=== PATIENT | male | born 1965 | race Caucasian/White ===

== ENCOUNTER 2025-04-05 09:29 | Inpatient (IN) | payer BC ==
[~2025-04-05] VITALS: Ht 180.3 cm; Wt 100.1 kg
--- NOTE | 2025-04-05 09:50 | ELECTROCARDIOGRAPH REPORT ---
[facility] Test Date: 2025-04-05 Test Time: 09:48:18 Pat Name: ERNESTINE EUBANKS Department: [facility]-ER Patient ID: [facility]-[id number] Room: [place] [address] Gender: M Game Room Attendant: : 1965 Requested By: ROGERIO RALPH Order Number: [id number] Reading MD: Dr. Gurinder Toscano Measurements Intervals [place] Rate: 102 P: 71 MD: 174 QRS: 95 QRSD: 159 T: -81 QT: 391 QTc: 510 Interpretive Statements Sinus tachycardia Nonspecific intraventricular conduction delay Anterior infarct, old Abnormal T, consider ischemia, lateral leads Baseline wander in lead(s) V2 Electronically Signed On 04-10-2025 7:50:[address] Gurinder Toscano Please click the below link to view image of tracing.
[2025-04-05 10:06] LABS: MEAN PLATELET VOLUME 7.5 FL (7.4-10.4); RED CELL DISTRIBUTION WIDTH 12.0 % (11.5-14.5)
[2025-04-05 10:32] LABS: CREATININE 5.43 MG/DL (0.60-1.10); PRO BRAIN NATRIURETIC PEPTIDE 8305 PG/ML (0-125); TOTAL CARBON DIOXIDE 26.0 MMOL/L (24-32); eCRCL 15 ML/MIN; eGFR 11 ML/MIN
[2025-04-05] MEDS ORDERED: MULT-1085 PO (11:09)
[2025-04-05] MEDS ORDERED: ASCO10004 PO (11:11)
[2025-04-05] MEDS ORDERED: ASPI-1265 PO (11:11)
--- NOTE | 2025-04-05 11:23 | Physician Documentation ---
History of Present Illness ~ General Chief Complaint: Multiple Medical Complaints Stated Complaint: ABDOMINAL PAIN Time Seen by MD: 10:59 Source: patient (16) History of Present Illness Initial Comments Patient here with multiple medical complaints. He is a gentleman who never gets any regular medical care, reports over the last couple of months having a nagging persistent cough productive of phlegm, a full feeling in his low abdomen especially postprandial, but without any vomiting or diarrhea. He has noted some loosening of his bowel is, last bowel movement today. He denies any fever, shortness of breath, lower extremity edema, but does report a morning chest pain, substernal, going on generally every morning and lasting for a few minutes. He does not currently have any chest pain. Medication Reconciliation Allergies: Coded Allergies: No Known Allergies (Unverified , 04/05/25) Scheduled Ascorbic Acid (Vitamin C), 2 TAB PO DAILY, (Reported) Aspirin (Aspirin), 1 TAB PO DAILY, (Reported) Multivitamin (Multi Vitamin Daily), 1 TAB PO DAILY, (Reported) Past Medical History Past Medical History: No Pertinent History Smoking Status: Never smoker Alcohol Use: Occasionally Drug Use: none Review of Systems All Other Systems at this time: Reviewed and Negative Physical Exam Physical Exam Vital Signs: Temperature: 98.4, Source: Oral, Heart Rate: 114, Respiratory Rate: 20, BP: 141/105, Pulse Oximetry: 98, Weight: 100.100 Oxygen Flow Rate: 0 Physical Exam General: Pt is awake, alert, oriented x4 in no acute distress and well appearing. Head: Normocephalic and atraumatic. Eyes: Conjunctiva normal. ENT: Mucous membranes moist. Neck: Supple. Chest: Clear to auscultation bilaterally, without rales, rhonchi, or wheezes. There is no accessory muscle use or retractions. Cardiac: Regular rate and rhythm without murmurs, gallops or rubs. Palpation of the chest wall is normal. Abd: Soft, nondistended, nontender, with normoactive bowel sounds. No guarding or rebound. Extremities: Within normal limits without cyanosis, clubbing, or edema. Skin: [place], warm and dry with no significant rash appreciated. Neuro: Cranial nerves II-XII grossly intact. The gait is normal. Progress Results/Orders Results/Orders Orders - ROGERIO RALPH MD Chest,Single View (04/05/25 11:29) Monitor (04/05/25 09:45) Saline Lock (04/05/25 09:45) Oxygen (04/05/25 09:45) Hs Troponin I W Calculations (04/05/25 11:45) Hs Troponin I W Calculations (04/05/25 12:45) Page Hospitalist (04/05/25 11:56) Completed Orders - ROGERIO RALPH MD Chest,Single View (04/05/25 11:29) Cbc/Diff (04/05/25 09:45) BMP (04/05/25 09:45) PBNP (04/05/25 09:45) Electrocardiogram (04/05/25 09:45) Hs Troponin I W Calculations (04/05/25 09:45) Vital Signs 04/05/25 04/05/25 04/05/25 04/05/25 09:41 10:45 11:05 11:38 Temp 98.4 Pulse 108 114 103 Resp 16 20 20 B/P (MAP) 145/106 141/105 (117) 136/103 (114) Pulse Ox 99 98 96 O2 Flow Rate 0 0 0 Laboratory Tests Test 04/05/25 09:54 04/05/25 11:31 White Blood Count 7.8 Red Blood Count 3.31 L Hemoglobin 10.5 L Hematocrit 31.0 L Mean Corpuscular Volume 93.7 Mean Corpuscular Hemoglobin 31.6 H Mean Corpuscular Hemoglobin Concent 33.8 Red Cell Distribution Width 12.0 Platelet Count 252 Mean Platelet Volume 7.5 Neutrophils (%) (Auto) 71.6 Lymphocytes (%) (Auto) 16.1 L Monocytes (%) (Auto) 9.6 Eosinophils (%) (Auto) 1.9 Basophils (%) (Auto) 0.8 Neutrophils # (Auto) 5.6 Lymphocytes # (Auto) 1.3 Monocytes # (Auto) 0.7 Eosinophils # (Auto) 0.1 Basophils # (Auto) 0.1 CBC Comment Sodium Level 138 Potassium Level 5.4 H Chloride Level 104 Carbon Dioxide Level 26.0 Anion Gap 8 Blood Urea Nitrogen 96 H Creatinine 5.43 H Estimated GFR/1.73 m2 11 BUN/Creatinine Ratio 17.7 Glucose Level 109 H Calcium Level 8.9 Troponin I High Sensitivity 204 *H Pro-B-Type Natriuretic Peptide 8305 H Albumin 3.8 Chemistry Comments Consults/PCP Consults/PCP : Time Call Requested: 11:53 Consult Reason/Comments: Hospitalist Additional Comment 12:05 Case d/w resident from Dr. Vergara's service, who will evaluate the patient for admission. Medical Decision Making Differential Diagnosis Patient presenting with generalized complaints, minimal chest pain on occasion, no chest pain at this time. EKG per my interpretation showing sinus tachycardia with a rate of 102, anterior Q-waves, and interventricular conduction delay but no STEMI. Patient has not elevated troponin however has obvious renal failure which is more likely to be causing the elevation in the troponin level. The cause of the patient's renal insufficiency is unknown, nor is its duration, as patient has no recent health care or labs for comparison. He is comfortable and stable at this time, we will be admitted to the hospitalist service for further evaluation and management. Departure Time of Disposition: 11:54 Admitted to Inpatient Unit: yes, to hospitalist Impression: Primary Impression: Renal failure Qualified Codes: N19 - Unspecified kidney failure Additional Impressions: Pulmonary edema Elevated troponin I level Condition: Guarded Referrals: NO PRIMARY CARE PROVIDER (PCP) Education Educated: Patient, Family Educated regarding: diagnosis, treatment ROGERIO RALPH MD Apr 05, 2025 11:23
[2025-04-05] MEDS ORDERED: PERFLUTREN PROTEIN-A MICROSPHR (Optison) 0.22 MG/ML 3ML VIAL IV ONE (12:20)
[2025-04-05] MEDS ORDERED: magnesium hydroxide 30ml (MOM) UD suspension PO PRN (12:25)
[2025-04-05] MEDS ORDERED: potassium Cl 20 mEq SR tablet PO PRN ×2 (12:25)
[2025-04-05] MEDS ORDERED: ondansetron 4mg rapidly disintigrating tab PO PRN (12:25)
[2025-04-05] MEDS ORDERED: HYDROmorphone inj. 0.5 MG/0.5 ML DISP.SYRIN IV PRN (12:25)
[2025-04-05] MEDS ORDERED: HYDROcodone/acetaminophen 10/325mg tab PO PRN (12:25)
[2025-04-05] MEDS ORDERED: magnesium sulf-water 2g/50mL 50 ML IV PRN (12:25)
[2025-04-05] MEDS ORDERED: mag hydrox/Alum hydrox/simeth 30ml oral suspension PO PRN (12:25)
[2025-04-05] MEDS ORDERED: potassium Cl 40MEQ/1/2NS 520ml 520 ML IV PRN (12:25)
[2025-04-05] MEDS ORDERED: HYDROcodone/acetaminophen 5mg/325mg tablet PO PRN (12:25)
[2025-04-05] MEDS ORDERED: ondansetron/PF 4mg/2ml inj IV PRN (12:25)
[2025-04-05] MEDS ORDERED: magnesium Cl slow-release 64mg tablet PO PRN (12:25)
[2025-04-05] MEDS ORDERED: HYDROmorphone/PF 0.2 MG/ML SYRINGE IV PRN (12:25)
[2025-04-05] MEDS ORDERED: magnesium sulf-water 4G/100mL 100 ML IV PRN (12:25)
[2025-04-05] MEDS ORDERED: morphine 4 MG/ML inj SYRINge IV PRN ×2 (12:32→12:33)
--- NOTE | 2025-04-05 12:36 | RADIOLOGY REPORT ---
EXAM: DI CHEST,SINGLE VIEW CLINICAL HISTORY: CP TECHNIQUE: Single AP view of the chest WID: COMPARISON: None FINDINGS: Lines and tubes: None Chest: There is cardiomegaly and pulmonary vascular congestion. Calcified plaque projects over the aortic arch. No pleural effusion, pneumothorax, or consolidation. The osseous structures are grossly intact. Multilevel thoracic spondylosis. IMPRESSION: 1. Cardiomegaly and pulmonary vascular congestion.
--- NOTE | 2025-04-05 12:36 | HISTORY AND PHYSICAL-Residence ---
History & Physical Providers to CC Resident Creating Document: DAVID ROBERTSON, RES ~ History of Present Illness Reason for Admit\Complaint: NSTEMI, acute kidney injury, congestive heart failure History of Present Illness A 59 year-old male with no known past medical history presents to the Emergency Department with complaints of recurrent abdominal fullness and intermittent retrosternal chest pain over the past few months. He has not previously sought medical care and does not have a primary care physician. Over the past year, he has experienced progressive generalized weakness, shortness of breath with exertion (notably after walking approximately 200 meters), intermittent abdominal fullness associated with constipation, and decreased urine output. On the day of presentation, he reports worsening abdominal fullness and constipation, along with intermittent retrosternal chest pain accompanied by shortness of breath. He denies palpitations, dizziness, chills, nausea, and vomiting. Additionally, he notes recent weight loss following a high-protein diet. Allergies: Coded Allergies: No Known Allergies (Unverified , 04/05/25) Home Medications Home Medications Active Reported Aspirin 81 Mg Tab.chew 1 Tab PO DAILY 30 Days Vitamin C (Ascorbic Acid) 1,000 Mg Tablet 2 Tab PO DAILY 15 Days DIRECTED Multi Vitamin Daily (Multivitamin) 1 Each Tablet 1 Tab PO DAILY 30 Days Past Medical History Past Medical History No past medical history Past Surgical History Surgical History Comment No surgical history Past Social History Social History Comment Patient does not have primary care physician He has occasional drinker, nonsmoker, not a drug user, patient chews tobacco He lives in his home with his and able to ambulate without any assistance Smoking: Non-Smoker Alcohol Use: Occasionally Drug Use: None ROS All Other Systems: Reviewed and Negative Constitutional: Reports: weakness Eyes: Reports: no symptoms reported ENT: Reports: no symptoms reported Respiratory: Reports: shortness of breath Cardiovascular: Reports: chest pain Gastrointestinal: Reports: abdominal pain Genitourinary: Reports: decreased urine output Male Genitalia: Reports: no symptoms reported Neurological: Reports: no symptoms reported Musculoskeletal: Reports: no symptoms reported Integumentary: Reports: no symptoms reported Allergic/Immunologic: Reports: no symptoms reported Hematologic/Lymphatic: Reports: no symptoms reported Endocrine: Reports: no symptoms reported Psychiatric: Reports: no symptoms reported Exam Vitals: Vital Signs Date Time Temp Pulse Resp B/P (MAP) Pulse Ox O2 Delivery O2 Flow Rate FiO2 04/05/25 11:38 103 20 136/103 (114) 96 0 04/05/25 09:41 98.4 General: GENERAL: Awake, alert, oriented. No acute distress. HEENT : Normocephalic, atraumatic, pupils equal and reactive to light, extraocular movements intact, no scleral icterus or conjunctival pallor, dry oral mucosa NECK: neck is supple, trachea midline, no lymphadenopathy, no thyromegaly, no JV distention RESPIRATORY: Chest expansion equal bilaterally, mild bilateral crepitating are heard on auscultation, no wheezes, or rhonchi. No use of accessory muscles, no tenderness on palpation. CARDIOVASCULAR: S1 and S2 heard, no murmurs, no rubs, or gallops ABDOMEN: Soft, mild tenderness to the palpation, mildly distended, bowel sounds present and normoactive. No organomegaly, no palpable mass, no rebound or guarding NEUROLOGICAL: Alert, oriented, normal memory, speech is normal Cranial nerves II-XII- intact Motor strength 5/5 Sensation-intact in all extremities Reflexes +2 and symmetrical Coordination is intact EXTREMITIES: No Edema, peripheral pulses felt, no deformities Psychiatric:Appropriate mood and affect,No hallucinations Diagnostic Data Last Recorded Lab Results: 04/05/25 0904/05/25 0954 Advance Care Planning Advanced Care plannin - 30 Minutes Additional Plan 59 years old male with no past medical history he is currently evaluated for NSTEMI, acute kidney injury, congestive heart failure NSTEMI Patient presents intermittent chest pain with new EKG showing LBB Patient current blood pressure 132/95, Hr-103 Troponin: [phone] Chest x-ray-shows cardiomegaly and pulmonary congestion Started on carvedilol 3.125 mg, aspirin 81 mg, atorvastatin 80 mg p.o. daily, sublingual nitroglycerin p.r.n. for chest pain Patient is started on heparin drip pharmacy to dose Consulted harness worker Dr. Weiss Follow up with CBC/CMP with 24 hours telemetry Acute kidney Injury possible 2/2 chronic bladder obstruction Patient mentioned decreased urine output past few months BUN-94,Cr-5.51, BUN/creatinine-17.1, FENa-2.3 % CT abdomen/Pelvis shows Severe bilateral hydroureteronephrosis down to the level of the urinary bladder. No focal obstructing lesion identified.Irregular contour and wall thickening of the urinary bladder is suggestive of chronic outlet obstruction. Prostatomegalay Ordered PSA, consulted Nephrology Patient is currently on Jj's catheter Follow up with CBC/CMP Acute congestive heart failure with unknown ejection fraction ProBnp -8305 Chest Xray - Cardiomegalay and pulmonary congestion follow up with echocardiogram Urinary tract infection Urine analysis positive for leukocyte esterase, WBC Started on ceftriaxone 1 g IV daily Hyperlipidemia Patient has no past medical history of hyperlipidemia Started on atorvastatin 80 mg p.o. daily Hyperkalemia Patient potassium level is 5.5 Patient is currently on hypokalemia/hyperkalemia protocol Normocytic normochromic anemia Possible hemolytic anemia and early megaloblastic Follow up with B12, haptoglobin, LDH Follow up with CBC Code Status: Full DVT prophylaxis: Heparin drip Analgesia/Sedation: Morphine Line/tube: Peripheral Nutrition: Renal diet PT: Order Prognosis: Guarded Disposition-patient will be monitored in PCU with 24 hours telemetry David Robertson PGY1-Internal Medicine Resident Date of Service: Apr 05, 2025 Billing Provider: LUKE RANDLE MD, SATISH, RES Apr 05, 2025 12:36
[2025-04-05 12:52] LABS: CREATININE 5.37 MG/DL (0.60-1.10); TOTAL CARBON DIOXIDE 23.4 MMOL/L (24-32); eCRCL 15 ML/MIN; eGFR 11 ML/MIN
[2025-04-05 13:02] LABS: CHOL/HDL RATIO 5.3 (0.00-4.99); LACTATE DEHYDROGENASE 212 U/L (85-227); LDL CHOLESTEROL 122 MG/DL (50-100)
[2025-04-05 13:43] LABS: LEUKOCYTE ESTERASE ,URINE LARGE (Neg); NITRITES, URINE NEGATIVE (Neg); OCCULT BLOOD,URINE SMALL (Neg)
[2025-04-05 13:45] VITALS: BP 132/95; PULSE 103; RESP 16; TEMP 98.2; O2SAT 97
[2025-04-05 13:47] LABS: OSMOLALITY UA 299.0 MOSM/K (50-1400)
[2025-04-05 13:53] LABS: UA COLLECTION TYPE URINAL
[2025-04-05 13:54] LABS: MUCUS STRANDS NONE SEEN /LPF (Neg); SQUAMOUS EPITHELIAL CELL,UR NONE SEEN /LPF (FEW)
[2025-04-05 13:58] LABS: CREATININE,URINE RANDOM 55.0 MG/DL; TOTAL PROTEIN,URINE RANDOM 34.2 MG/DL
[2025-04-05 14:15] LABS: PHOSPHORUS 5.2 MG/DL (2.3-4.5)
[2025-04-05] MEDS ORDERED: normal saline 1000ml 1,000 ML IV SCH (14:25)
[2025-04-05] MEDS: insulin regular, human 10 units/0.1 ml syringe IV ONE (14:50)
[2025-04-05] MEDS ORDERED: albuterol 2.5 MG/3 ML nebule NEB ONE (14:50)
[2025-04-05] MEDS ORDERED: CALCIUM GLUC 1gm/50ml NACL,iso 50 ML IV PRN (14:50)
[2025-04-05] MEDS: dextrose 50%-water 50ml dispensing syringe IV ONE (14:50)
[2025-04-05] MEDS: normal saline 1000ml 1,000 ML IV SCH (15:20)
[2025-04-05 15:23] LABS: CREATININE 5.51 MG/DL (0.60-1.10); TOTAL CARBON DIOXIDE 23.1 MMOL/L (24-32); eCRCL 15 ML/MIN; eGFR 11 ML/MIN
--- NOTE | 2025-04-05 15:33 | ELECTROCARDIOGRAPH REPORT ---
[facility] Test Date: 2025-04-05 Test Time: 15:31:30 Pat Name: ERNESTINE EUBANKS Department: [facility] Room: [place] [address] A Gender: M Sheriff Sergeant: : 1965 Requested By: ALEXIS MEDRANO Order Number: [id number] Reading MD: Dr. JUAN Ramirez Measurements Intervals [place] Rate: 101 P: 65 NH: 161 QRS: 12 QRSD: 160 T: 196 QT: 402 QTc: 522 Interpretive Statements Sinus tachycardia Left bundle branch block Electronically Signed On 04-06-2025 15:39:[address] JUAN Ramirez Please click the below link to view image of tracing.
[2025-04-05] MEDS ORDERED: insulin regular, human 10 units/0.1 ml syringe IV PRN (15:50)
[2025-04-05] MEDS ORDERED: dextrose 50%-water 50ml dispensing syringe IV PRN (15:50)
[2025-04-05 16:00] LABS: UA EOSINOPHILS FEW EOS /HPF
[2025-04-05] MEDS: normal saline 500ml IV soln 500 ML IV ONE (16:06)
--- NOTE | 2025-04-05 16:22 | RADIOLOGY REPORT ---
Exam: CT CT ABDOMEN PELVIS History: PAIN ABDOMEN,CARIDAD Comparison Study: None Technique: Multidetector spiral CT of the abdomen was performed from lung bases to pubic symphysis. Imaging was performed without IV contrast. Axial, coronal and sagittal multiplanar reformats were obtained from the axial data set by the technologist. Radiation Dose : 1. Abdomen/Pelvis: CTDIvol 28 mGy, DLP 1554 mGy*cm. Findings: Evaluation of solid organs is limited due to lack of intravenous contrast use. Lung Bases: Probable mild interstitial pulmonary edema. Trace right pleural effusion. Liver: The liver is normal in size. No focal lesions. Gallbladder and Biliary Tree: Unremarkable Spleen: Unremarkable Pancreas: The pancreas is grossly normal in appearance. Adrenal Glands: Unremarkable Kidneys: Severe bilateral hydroureteronephrosis down to the level of the urinary bladder. No focal obstructing lesion identified. .Bladder: Irregular contour and wall thickening is suggestive of chronic outlet obstruction. Bowel: The stomach is grossly normal in appearance. Small bowel and colon are normal in caliber and distribution. Normal appendix is visualized in the right lower quadrant without findings of appendicitis. Ascites: Absent Lymphadenopathy: No mesenteric, retroperitoneal or periportal lymphadenopathy. Abdominal Wall and Mesentery: Unremarkable. Vasculature: The visualized abdominal aorta is normal in size and caliber. Evaluation of abdominal and pelvic vessels is limited due to lack of intravenous contrast. Pelvic Organs: Prostate is enlarged measuring up to 4.9 cm in transverse dimension. Musculoskeletal: No aggressive focal bony lesions, acute fractures or dislocation. IMPRESSION: 1. Severe bilateral hydroureteronephrosis down to the level of the urinary bladder. No focal obstructing lesion identified. 2. Irregular contour and wall thickening of the urinary bladder is suggestive of chronic outlet obstruction. 3. Prostatomegaly. 4. Mild interstitial pulmonary edema. 5. Trace right pleural effusion Radiation optimization: All CT scans at this facility use at least one of these dose optimization techniques: automated exposure control mA and/or kV adjustment per patient size (includes targeted exams where dose is matched to clinical indication) or iterative reconstruction.
[2025-04-05] MEDS: MESSAGE TO NURSING IV ONE (16:40)
[2025-04-05] MEDS: sodium polystyrene sulfonate 15gm/60ml oral suspension PO ONE (17:04)
[2025-04-05] MEDS: CefTRIAXone/D5W-Rocephin 1gm 50 ML IV ONE (17:04)
[2025-04-05 17:14] LABS: MEAN PLATELET VOLUME 7.6 FL (7.4-10.4); RED CELL DISTRIBUTION WIDTH 12.0 % (11.5-14.5)
[2025-04-05 17:27] LABS: INR 1.0 INR
[2025-04-05] MEDS: heparin 10,000 units/1 ML INJ IV ONE (17:45)
[2025-04-05] MEDS: heparin 25,000 UNIT/250ml bag 250 ML IV PRN (17:47)
[2025-04-05 18:00] VITALS: BP 130/95; PULSE 98; RESP 18; TEMP 99; O2SAT 97
--- NOTE | 2025-04-05 18:56 | RADIOLOGY REPORT ---
RENAL ULTRASOUND REASON FOR EXAM: Acute kidney injury COMPARISON: None TECHNIQUE: Real-time sector scans in multiple planes were obtained over the kidneys, ureters and bladder. FINDINGS: The right kidney measures 13.6 cm. The left kidney measures 12.4 cm. No mass is identified. There is moderate to severe bilateral hydronephrosis. The urinary bladder is significantly distended at 535 cc and trabeculated. The ureteral jets are not identified during this study. IMPRESSION: Moderate to severe bilateral hydronephrosis. Severely distended and trabeculated urinary bladder.
[2025-04-05 20:00] VITALS: RESP 21; O2SAT 96
[2025-04-05] MEDS: docusate sod 100mg capsule PO SCH (20:00)
--- NOTE | 2025-04-05 21:25 | CONSULTATION REPORT ---
Consult Providers to CC ~ History of Present Illness Primary Medical Doctor: David Robertson MD Reason for Admit\Complaint: CARIDAD, obstructive uropathy History of Present Illness I have been asked to do renal consult for this 59 year-old male with no known past medical history that presented to the Emergency Department with complaints of recurrent abdominal fullness and intermittent retrosternal chest pain over the past few months. He has not previously sought medical care and does not have a primary care physician. Over the past year, he has experienced progressive generalized weakness, shortness of breath with exertion (notably after walking approximately 200 meters), intermittent abdominal fullness associated with constipation, and decreased urine output. On the day of presentation, he reports worsening abdominal fullness and constipation, along with intermittent retrosternal chest pain accompanied by shortness of breath. He denies palpitations, dizziness, chills, nausea, and vomiting. Additionally, he notes recent weight loss following a high-protein diet. CT scan showed bilateral severe hydronephrosis with distended bladder and prostatomegaly. Patient is awaiting munoz cath placement. Allergies: Coded Allergies: No Known Allergies (Unverified , 04/05/25) Home Medications Home Medications Active Reported Aspirin 81 Mg Tab.chew 1 Tab PO DAILY 30 Days Vitamin C (Ascorbic Acid) 1,000 Mg Tablet 2 Tab PO DAILY 15 Days DIRECTED Multi Vitamin Daily (Multivitamin) 1 Each Tablet 1 Tab PO DAILY 30 Days Past Medical History Past Medical History nothing significant. he does not have primary care physician. Past Surgical History Surgical History Comment nothing pertinent Past Social History Social History Comment never smoked, occasional etoh no drug abuse ROS ROS abdominal distension. oliguiria. no other complaints. Exam Vitals: Vital Signs Date Time Temp Pulse Resp B/P (MAP) Pulse Ox O2 Delivery O2 Flow Rate FiO2 04/05/25 18:30 98 04/05/25 16:54 Room Air 04/05/25 13:45 98.2 16 132/95 (107) 97 04/05/25 13:34 0 General: Vital Signs: As above General: Normal body habitus, no acute distress. Skin: No rashes, lumps, ulcers, blisters, purpura or petechiae HEENT: Anicteric sclera, ANMOL Neck: Supple and nontender without enlargement of the thyroid, or lymphadenopathy. Chest: Normal size and shape, no tenderness, CTA bilaterally Heart: Regular. No jugular venous distention, S1 and S2 heard , no gallop Abdomen: distended with fluid thrill above umbilicus. full bladder Extremities: No pedal edema Neuro: Nonfocal. Diagnostic Data Last Recorded Lab Results: 04/05/25 1701 04/05/25 1457 Diagnostic Data: Laboratory Tests Test 04/05/25 14:57 04/05/25 17:01 D-Dimer 1.91 MG/L FEU (0-0.50) H D-Dimer Comment Prothrombin Time 10.3 SECONDS (9.0-12.0) INR International Normalized Ratio 1.0 INR APTT (Heparin Protocol) 28 SECONDS (45-60) L Coagulation Comments Problems: (1) CARIDAD (acute kidney injury) Assessment & Plan: secondary to obstructive uropatahy. not sure how long this has been brewing but per history symptoms of abdominal distension dates back to a month. i did discuss with the patient about the possibility of plateauing renal function during recovery after a munoz is placed. He also needs outpatient urology consultation and TURP vs other interventions per urology with cystoscopy. I called the RN around to check at 9:30pm when he is working on it. (2) Anemia Assessment & Plan: hb is 10.5. no need for retacrit at this time. (3) Obstructive uropathy Assessment & Plan: as above. munoz is a must. if there is difficulty, Urologist should be consulted tonight to get it done. It can't wait overnight. ENRIQUE PEARSON MD Apr 05, 2025 21:25
[2025-04-05] MEDS: LidoCAINE 2% Topical Jelly 11mL syringe (UROJET) TOP ONE (21:44)
[2025-04-05 22:00] VITALS: BP 125/86; PULSE 102; RESP 16; TEMP 98.5; O2SAT 98
[2025-04-06] VITALS (8 sets, daily range): BP systolic 116–145; BP diastolic 60–96; PULSE 70–99; RESP 13–19; TEMP 97–98.5; O2SAT 93–99
[2025-04-06] MEDS: MESSAGE TO NURSING IV ONE ×3 (01:30→16:05)
[2025-04-06] MEDS: heparin 10,000 units/1 ML INJ IV PRN (01:39)
--- NOTE | 2025-04-06 05:03 | CONSULTATION REPORT ---
History of Present Illness Providers to CC ~ Reason for Admit\Admit Dx: CARIDAD, obstructive uropathy, difficult munoz catheter placement Refering MD: medicine resident team History of Present Illness 59yo M presented to the ER with various complaints including chest pain, abdominal pain, cough. He does report gradually progressive lower urinary tract symptoms for some time, particularly bothersome over the past 1-2 months, including difficulty urinating, weak stream, sensation of incomplete emptying, frequent small volume voids, and cloudy urine. He denies gross hematuria or painful urination. In ER, workup revealed renal failure with Creatinine 5.4-5.5, elevated troponin, elevated BNP, normal WBC. UA +large LE, small blood 3-10 RBC/hpf, negative nitrite. CT abd pelvis without contrast reviewed independently - shows severe bilateral hydroureteronephrosis down to the level of the bladder with no obstructing stone or mass; no evidence of renal mass, although evaluation is limited by lack of IV contrast; nonspecific bladder wall thickening; bladder distended/full; enlarged prostate. Patient was noted to have PVR of 500cc on bladder scan. Multiple attempts at placing a munoz catheter were unsuccessful, and therefore, urology consultation was requested due to urinary retention and inability of the other providers to place a munoz. At time of my assessment, patient states he has been voiding with his usual symptoms. He denies any acute change in urination or pelvic pain. He denies any prior urologic history. I placed a 16Fr coude catheter into the bladder with immediate return of ~600- 700cc slightly cloudy yellow urine. Patient tolerated well. Allergies: Coded Allergies: No Known Allergies (Unverified , 04/05/25) Home Medications Home Medications Active Reported Aspirin 81 Mg Tab.chew 1 Tab PO DAILY 30 Days Vitamin C (Ascorbic Acid) 1,000 Mg Tablet 2 Tab PO DAILY 15 Days DIRECTED Multi Vitamin Daily (Multivitamin) 1 Each Tablet 1 Tab PO DAILY 30 Days Past Medical History Medical History Comment none Past Surgical History Surgical History Comment none Past Family History Family History Comment noncontributory Past Social History Social History Comment denies smoking Physical Exam Last Vital Signs Recorded: Temperature: 98.2, Source: Oral, Heart Rate: 103, Respiratory Rate: 16, BP: 132/95, Pulse Oximetry: 97, Weight: 100.100 Results Diagram Lab Result Diagram: 04/05/25 1701 04/05/25 1457 Assessment/Plan Problems/Diagnosis: (1) Urinary retention Assessment & Plan: 59yo M admitted with various complaints including chest pain, abd pain, cough, as well as lower urinary tract symptoms for 1-2 months. Workup reveals NSTEMI, renal failure with Creatinine 5.5, severe bilateral hydroureteronephrosis down to the distended bladder, and post void residual >500cc - 16Fr catheter placed with return of 600-700cc slightly cloudy yellow urine - Start flomax - Continue munoz for at least 1-2 weeks, or until Creatinine nadirs - Monitor renal function - Hydronephrosis is expected to resolve with bladder drainage - Pending his clinical course, we may consider voiding trial in hospital in about 1-2 week, or we can arrange outpatient follow up after discharge for voiding trial in office. He will need outpatient urology follow up for further management and workup DREW JOHNS MD Apr 06, 2025 05:03
[2025-04-06] MEDS: CefTRIAXone/D5W-Rocephin 1gm 50 ML IV SCH (07:14)
[2025-04-06] MEDS: K and/or MAG REPLACEMENT MC SCH (08:00)
--- NOTE | 2025-04-06 08:15 | PROGRESS NOTE ---
Progress Note Dictate Providers to CC ~ Central Line/PICC still needed: No Munoz Indications Met/Not Met: F/C Indications Met Antibiotic Ordered?: Yes Subjective Subjective The patient feels relieved after the munoz was placed with difficulty by around 4:30 am today. Since it was just placed, I don't see much improvement in the renal numbers today. Expect it to be better from tomorrow. not sure if he has any underlying CKD as well. will continue with iv fluids. Objective Vitals Vital Signs Date Time Temp Pulse Resp B/P (MAP) Pulse Ox O2 Delivery O2 Flow Rate FiO2 04/06/25 08:20 15 98 Room Air 0.0 04/06/25 06:43 97.8 99 137/96 (110) Lab Results: 04/06/25 0810 04/06/25 0810 Objective Vital Signs: As above General: Normal body habitus, no acute distress. Skin: No rashes, lumps, ulcers, blisters, purpura or petechiae HEENT: Anicteric sclera, ANMOL Neck: Supple and nontender without enlargement of the thyroid, or lymphadenopathy. Chest: Normal size and shape, no tenderness, CTA bilaterally Heart: Regular. No jugular venous distention, S1 and S2 heard , no gallop Abdomen: Soft and non tender no organomegaly,BS+ Extremities: No pedal edema Neuro: Nonfocal. Coagulation Studies Laboratory Tests Test 04/05/25 14:57 04/05/25 17:01 04/06/25 08:10 D-Dimer 1.91 MG/L FEU (0-0.50) H D-Dimer Comment Prothrombin Time 10.3 SECONDS (9.0-12.0) INR International Normalized Ratio 1.0 INR APTT (Heparin Protocol) 38 SECONDS (45-60) L Coagulation Comments Advance Care Planning Advanced Care plannin - 30 Minutes Problem\Assessment\Plan Problems/Diagnosis: (1) CARIDAD (acute kidney injury) Assessment & Plan: secondary to obstructive uropatahy. not sure how long this has been brewing but per history symptoms of abdominal distension dates back to a month. i did discuss with the patient about the possibility of plateauing renal function during recovery after a munoz is placed. He also needs outpatient urology consultation and TURP vs other interventions per urology with cystoscopy. has a difficult munoz placed by . now on Flomax (2) Anemia Assessment & Plan: hb is 10.5. no need for retacrit at this time. (3) Obstructive uropathy Assessment & Plan: as above. munoz is a must. if there is difficulty, Urologist 's help early this am is greatly appreciated. ENRIQUE PEARSON MD Apr 06, 2025 08:15
[2025-04-06] MEDS: ringers solution, lacted 1,000 ML IV SCH (08:26)
[2025-04-06 08:52] LABS: MEAN PLATELET VOLUME 8.1 FL (7.4-10.4); RED CELL DISTRIBUTION WIDTH 12.0 % (11.5-14.5)
[2025-04-06] MEDS ORDERED: heparin 25,000 UNIT/250ml bag 250 ML IV PRN (09:07)
[2025-04-06 09:20] LABS: CREATININE 5.19 MG/DL (0.60-1.10); TOTAL CARBON DIOXIDE 23.0 MMOL/L (24-32); eCRCL 16 ML/MIN; eGFR 11 ML/MIN
--- NOTE | 2025-04-06 16:08 | CARDIOLOGY REPORT ---
APPROVED REPORT EXAM: Comprehensive 2D, Doppler, and color-flow Echocardiogram. Patient Location: 3025 A Heart Rate: 90's bpm Rhythm: SINUS Indications CONGESTIVE HEART FAILIRE CHEST PAIN Shaker Screen Operator: NONE Previous echo: NONE 2D Dimensions RVDd 2.9 cm IVSd 0.6 (0.7-1.1cm) LVDd 6.2 cm PWd 0.7 (0.7-1.1cm) IVSs 1.0 (0.8-1.2cm) LVDs 5.6 (2.5-4.0cm) PWs 1.1 (0.8-1.2cm) LVOT Diameter 2.04 (1.8-2.4cm) FS (%) 10.4 % SV 43.5 ml CO 3.8 L/min M-Mode Dimensions Left Atrium(MM) 4.26 (2.5-4.0cm) Aortic Root 3.66 (2.2-3.7cm) Aortic Cusp Exc 1.78 (1.5-2.0cm) Aortic Valve AoV Peak Jey. 129.2 cm/s AoV VTI 23.1 cm AO Peak GR. 6.7 mmHg AO Mean GR. 4 mmHg LVOT VTI 16.53 cm LVOT Peak Jey. 99.6 cm/s TOSHIA(VTI)/BSA 2.33 cm2/m2 TOSHIA (VTI) 2.33 cm2 AV DI 0.71 % Mitral Valve MV Peak Gr. 7 mmHg MV PHT 60 ms MVA (PHT) 3.67 cm2 MV VMax 135.5 cm/s LEFT VENTRICLE Dilatedl LV size and wall thickness. Overall systolic function is severely reduced. There is severe LV systolic dysfunction present. Overall estimated LVEF is about 10-15%. RIGHT VENTRICLE RV is normal size and function. ATRIA Left atrium is mildly dilated. AORTIC VALVE Trileaflet AV appears normal without stenosis. Trace insufficiency. MITRAL VALVE Mild MV annular calcification without stenosis. Moderate regurgitation. TRICUSPID VALVE TV appears structurally normal with trace regurgitation. PULMONIC VALVE Normal pericardium. No effusion. GREAT VESSELS The aortic root is normal in size. PERICARDIUM Normal pericardium. No effusion. Other Information Study Quality: Adequate Conclusion There is severe LV systolic dysfunction present. Overall estimated LVEF is about 10-15%. Dilatedl LV size and wall thickness. Overall systolic function is severely reduced. RV is normal size and function. Trileaflet AV appears normal without stenosis. Trace insufficiency. Mild MV annular calcification without stenosis. Moderate regurgitation. TV appears structurally normal with trace regurgitation. Normal pericardium. No effusion. The aortic root is normal in size.
--- NOTE | 2025-04-06 17:09 | PROGRESS NOTE- Residence ---
Progress Note - Resident Providers to CC Resident Creating Document: DONNY MORALES RES ~ Antibiotic Timeout Antibiotic Ordered?: Yes Subjective Patient was seen and examined at the bedside. He denies experiencing any chest pain or shortness of breath. The reason for his visit was abdominal fullness; he specifically noted that he has not had any chest pain or palpitations. He reports experiencing intermittent shortness of breath, but only with moderate to severe exertion. The patient has not reported any fever or productive cough. He also mentions minimal urethral discomfort following the Jj catheter placement. No other symptoms were reported. Objective Vital Signs Date Time Temp Pulse Resp B/P (MAP) Pulse Ox O2 Delivery O2 Flow Rate FiO2 04/06/25 16:09 97.4 70 19 138/69 (92) 93 04/06/25 12:22 Room Air 04/06/25 08:20 0.0 Result Diagram: 04/06/25 0810 04/06/25 0810 Awake , alert, and oriented x4 HEENT: Atraumatic, normocephalic, EOMI, anicteric sclera ; pink conjunctiva Neck: Trachea midline. Supple, full range of motion, no JVD Cardiac: Regular rhythm, regular rate with no murmurs all over the precordium. Respiratory: Equal breath sounds bilaterally, no tachypnea, no wheezing ,rub or rales, Chest wall is symmetric and without deformity. Gastrointestinal: Abdomen symmetric, non-distended, soft, non-tender, normal bowel sounds x4 quadrant, normoactive, no hepatosplenomegaly Musculoskeletal: No pedal edema Neurological: Mental status exam: alert and consciousness, orientation, memory, speech - Cranial nerve test: Cranial nerves 2-12 intact - Motor system: Normal Nutrition, normal tone, Power 5/5, no involuntary movements - Sensory system: Intact - Reflex testing: Biceps, triceps and knee reflexes 2+ - Cerebellar: Normal Skin: Warm and dry Coagulation Studies Laboratory Tests Test 04/05/25 14:57 04/05/25 17:01 04/06/25 15:30 D-Dimer 1.91 MG/L FEU (0-0.50) H D-Dimer Comment Prothrombin Time 10.3 SECONDS (9.0-12.0) INR International Normalized Ratio 1.0 INR APTT (Heparin Protocol) 82 SECONDS (45-60) H Coagulation Comments Plan Plan Assessment A 59-year-old male patient with no significant past medical history was admitted for acute kidney injury, congestive heart failure, and elevated troponin levels. 1. Acute Kidney Injury Most likely post-renal due to chronic bladder obstruction. The patient reported decreased urine output over the past few months, associated with increased urinary frequency and a sensation of bladder fullness. There were no signs of acute retention. - BUN: 94 mg/dL - Creatinine: 5.51 mg/dL - BUN/Creatinine Ratio: 17.1 - FENa: 2.3% - PSA: Pending - Renal Ultrasound: Moderate to severe bilateral hydronephrosis; severely distended and trabeculated urinary bladder. - CT Abdomen/Pelvis: Severe bilateral hydroureteronephrosis down to the level of the urinary bladder. No focal obstructing lesion identified. Irregular contour and wall thickening of the urinary bladder suggest chronic outlet obstruction. Prostatomegaly noted. Plan: - Jj catheter was placed by Urology, who recommended outpatient follow-up. - Creatinine levels are expected to decrease. - Increased Flomax to 0.4 mg twice daily. - Administer Lactated Ringer's solution at 150 mL/hour per nephrology recommendations. - Monitor kidney function closely. 2. Type 2 Myocardial Infarction 3. Chronic Systolic Heart Failure with Severely Decreased EF (10-15%) NYHA Class II, Class C. The patient complains of shortness of breath with moderate to severe exertion and denies orthopnea, chest pain, or epigastric pain. No peripheral edema or bibasilar crackles were present. Elevated troponin levels are attributed to a combination of acute kidney injury and congestive heart failure with severely decreased ejection fraction (EF). - EKG shows left bundle branch block . - ProBNP: 8305 - Troponin Levels: 204, 193, 196, 195 - Chest X-ray: Cardiomegaly and pulmonary congestion. - Echocardiogram: Dilated LV size and wall thickness. Overall systolic function is severely reduced. There is severe LV systolic dysfunction present. Overall estimated LVEF is about 10-15%. Plan: - Dr. [place] Weiss was consulted and recommended stopping the heparin drip, pending documentation - The patient is on IV fluids due to acute kidney injury. - Monitor closely for signs of fluid overload. - Started on carvedilol 3.125 mg twice daily. - Started on aspirin 81 mg and atorvastatin 80 mg daily. - Ordered LifeVest. - Plan to initiate Jardiance, spironolactone, and Entresto if kidney function allows. 4. Urinary Tract Infection, Complicated by CARIDAD Urinalysis is positive for leukocyte esterase and white blood cells. The patient denies dysuria. - Urine culture: Pending. - Started on ceftriaxone 1 g IV daily due to severe decreased kidney function, bilateral hydronephrosis and bladder outlet obstruction 5. Moderate Hyperkalemia Most likely related to acute kidney injury. The patients potassium level was 5.5, now reduced to 4.3. - Monitor potassium levels daily. 6. Normocytic Normochromic Anemia Possible mixed anemia of chronic disease and early megaloblastic anemia. - Pending tests: B12, haptoglobin, LDH. - Ordered iron panel. 7. Hyperlipidemia The patient has no past medical history of hyperlipidemia. - LDL: 122 - Started on atorvastatin 80 mg orally daily. Code Status: Full DVT prophylaxis: Heparin Analgesia/Sedation: Morphine Line/tube: Peripheral Nutrition: Renal diet PT: Pending Prognosis: Guarded Disposition: Continue medical treatment. Monitor kidney function closely. Followed by Nephrology, pending cardiology evaluation. Resident MD attestation The above note has been reviewed and supervised by a senior resident PGY2/PGY3 Patient was seen, examined and discussed with the attending physician Date of Service: Apr 06, 2025 Billing Provider: LUKE RANDLE MD,DONNY, RES Apr 06, 2025 17:09
--- NOTE | 2025-04-06 18:16 | CONSULTATION REPORT ---
History of Present Illness Providers to CC CC: SHREYA WEISS MD ~ Reason for Admit\Admit Dx: Cardiology consultation Refering MD: medicine resident team History of Present Illness Patient presented with complaints of abdominal fullness and intermittent exertional chest pain. He also has had dyspnea on exertion and cough for the past week and a half to two weeks. Found to have an acute kidney injury and obstructive uropathy requiring Jj catheter placement. Creatinine over five. His high sensitivity troponins were minimally elevated and mostly flat. Cardiology consultation requested for heart failure with reduced ejection fraction. Allergies: Coded Allergies: No Known Allergies (Unverified , 04/05/25) Home Medications Home Medications Active Reported Aspirin 81 Mg Tab.chew 1 Tab PO DAILY 30 Days Vitamin C (Ascorbic Acid) 1,000 Mg Tablet 2 Tab PO DAILY 15 Days DIRECTED Multi Vitamin Daily (Multivitamin) 1 Each Tablet 1 Tab PO DAILY 30 Days Past Medical History Medical History Comment Denies past medical history Past Surgical History Surgical History Comment Denies past surgical history Past Social History Social History Comment Does not currently smoke. He does not use drugs. Does chew tobacco. Lives at home with his in [place]. Works in [employer]. Physical Exam Last Vital Signs Recorded: RN Vital Signs have been reviewed: Yes, Temperature: 97.4, Source: Oral, Heart Rate: 70, Respiratory Rate: 19, BP: 138/69, Pulse Oximetry: 93, Weight: 100.100 Physical Exam General: Awake, alert, oriented. No apparent distress Respiratory: Lungs are clear to auscultation bilaterally. No respiratory distress. Chest: Normal shape and size. No accessory muscle use. Cardiovascular: Regular rate and rhythm. S1-S2. No murmur, gallop, rub. Gastrointestinal: Abdomen is soft. Nontender to palpation. Bowel sounds present. Extremities: No lower extremity edema, cyanosis or clubbing. Neurologic: Alert and oriented x4. Nonfocal Psychiatric: Normal mood and affect. Skin: Normal color. Warm and dry. Review of Systems All Other Systems at this time: Reviewed and Negative ROS Review of systems negative except documented in HPI. Results EKG EKG Sinus tachycardia with left bundle branch block. Rate of 101. QRS duration 160 milliseconds Echocardiogram Echocardiogram Conclusion There is severe LV systolic dysfunction present. Overall estimated LVEF is about 10-15%. Dilatedl LV size and wall thickness. Overall systolic function is severely reduced. RV is normal size and function. Trileaflet AV appears normal without stenosis. Trace insufficiency. Mild MV annular calcification without stenosis. Moderate regurgitation. TV appears structurally normal with trace regurgitation. Normal pericardium. No effusion. The aortic root is normal in size. Dictated by:ISSA MORALES MD Dictation date and time:04/06/251606 Electronically Signed by: ISSA MORALES MD Date and Time: 04/06/258 Diagram Lab Result Diagram: 04/06/25 0810 04/06/25 0810 Assessment/Plan Additional Plan Patient presented with complaints of abdominal fullness, dyspnea on exertion and chest pain. The following is his problem list: Heart failure with reduced ejection fraction, acute NT proBNP 8305 LVEF 10-15% by echocardiogram with moderate MR --continue carvedilol 3.125 mg b.i.d. --given his CARIDAD we will hold off on addition of SGLT2, MRA, ACEi/ARNI/ARB --start hydralazine and isosorbide dinitrate --risk of sudden cardiac reviewed. Agreeable for LifeVest. Minimally elevated troponins. CO II Represents CO type 2 secondary to acute kidney injury and heart failure with reduced ejection fraction --may continue heparin for 48 hours --recommend aspirin, statin, beta-dieudonne and management as above. Left bundle branch block Obstructive uropathy Acute kidney injury Jj catheter in place. We will need TURP --management per her primary team Case discussed with Dr. Weiss who is in agreement with this plan. Supervising MD Supervising Physician: DUSTIN Carvalho NP Apr 06, 2025 18:16
[2025-04-06] MEDS: heparin, porcine 5000 units/ml vial SQ SCH (21:09)
[2025-04-07] VITALS (19 sets, daily range): BP systolic 104–145; BP diastolic 65–98; PULSE 77–120; RESP 12–21; TEMP 97.3–98.5; O2SAT 97–98
[2025-04-07 07:23] LABS: MEAN PLATELET VOLUME 7.8 FL (7.4-10.4); RED CELL DISTRIBUTION WIDTH 11.9 % (11.5-14.5)
[2025-04-07 07:33] LABS: % IRON SATURATION 26 % (11-46)
[2025-04-07 08:27] LABS: CREATININE 4.24 MG/DL (0.60-1.10); TOTAL CARBON DIOXIDE 23.9 MMOL/L (24-32); eCRCL 19 ML/MIN; eGFR 14 ML/MIN
[2025-04-07 08:27] LABS: HAPTOGLOBIN 245 mg/dL (32-363)
--- NOTE | 2025-04-07 09:38 | PROGRESS NOTE ---
Progress Note Dictate Providers to CC ~ Central Line/PICC still needed: No Munoz Indications Met/Not Met: F/C Indications Met Antibiotic Ordered?: N/A Subjective Subjective 2D Echocardiogram: Conclusion There is severe LV systolic dysfunction present. Overall estimated LVEF is about 10-15%. Dilatedl LV size and wall thickness. Overall systolic function is severely reduced. RV is normal size and function. Trileaflet AV appears normal without stenosis. Trace insufficiency. Mild MV annular calcification without stenosis. Moderate regurgitation. TV appears structurally normal with trace regurgitation. Normal pericardium. No effusion. The aortic root is normal in size. Objective Vitals Vital Signs Date Time Temp Pulse Resp B/P (MAP) Pulse Ox O2 Delivery O2 Flow Rate FiO2 04/07/25 08:42 94 04/07/25 02:00 98.3 17 110/73 (85) 97 Room Air 04/06/25 20:00 0.0 Lab Results: 04/07/25 0642 04/07/25 0642 Objective Vital Signs: As above General: Normal body habitus, no acute distress. Skin: No rashes, lumps, ulcers, blisters, purpura or petechiae HEENT: Anicteric sclera, ANMOL Neck: Supple and nontender without enlargement of the thyroid, or lymphadenopathy. Chest: Normal size and shape, no tenderness, CTA bilaterally Heart: Regular. No jugular venous distention, S1 and S2 heard , no gallop Abdomen: Soft and non tender no organomegaly,BS+ Extremities: No pedal edema Neuro: Nonfocal. Coagulation Studies Laboratory Tests Test 04/05/25 14:57 04/05/25 17:01 04/06/25 15:30 D-Dimer 1.91 MG/L FEU (0-0.50) H D-Dimer Comment Prothrombin Time 10.3 SECONDS (9.0-12.0) INR International Normalized Ratio 1.0 INR APTT (Heparin Protocol) 82 SECONDS (45-60) H Coagulation Comments Advance Care Planning Advanced Care plannin - 30 Minutes Problem\Assessment\Plan Problems/Diagnosis: (1) CARIDAD (acute kidney injury) Assessment & Plan: secondary to obstructive uropatahy. not sure how long this has been brewing but per history symptoms of abdominal distension dates back to a month. i did discuss with the patient about the possibility of plateauing renal function during recovery after a munoz is placed. Appreciate the help from in getting the munoz cath. Creatinine is better at 4.2. We gave him good dose of IV fluids to support the post obstructive diuresis, and flush to avoid ATN. HOwever, today I understand that his Echocardiogram shows EF of 10-15%. If I don't see any further improvement in renal function, he may benefit with Dobutamine at that point. Cardiology is now involved. I have STOPPED the iv fluids to avoid a fluid overload situation. HE IS NOT READY TO BE DISCHARGED YET. (2) Anemia Assessment & Plan: hb is 9.7. no need for retacrit at this time. (3) Obstructive uropathy Assessment & Plan: as above. munoz is a must. if there is difficulty, Urologist 's help early this am is greatly appreciated. ENRIQUE PEARSON MD Apr 07, 2025 09:38
--- NOTE | 2025-04-07 10:12 | PROGRESS NOTE ---
Progress Note Cardiology Providers to CC ~ Subjective Subjective Patient up and ambulatory. No chest pain or shortness for breath. Objective Result Diagram: 04/07/2564104/07/25641 Objective General: Awake, alert, oriented. No apparent distress Respiratory: Lungs are clear to auscultation bilaterally. No respiratory distress. Chest: Normal shape and size. No accessory muscle use. Cardiovascular: Regular rate and rhythm. S1-S2. No murmur, gallop, rub. Gastrointestinal: Abdomen is soft. Nontender to palpation. Bowel sounds present. Extremities: No lower extremity edema, cyanosis or clubbing. Neurologic: Alert and oriented x4. Nonfocal Psychiatric: Normal mood and affect. Skin: Normal color. Warm and dry. Coagulation Studies Laboratory Tests Test 04/05/25 14:57 04/05/25 17:01 04/06/25 15:30 D-Dimer 1.91 MG/L FEU (0-0.50) H D-Dimer Comment Prothrombin Time 10.3 SECONDS (9.0-12.0) INR International Normalized Ratio 1.0 INR APTT (Heparin Protocol) 82 SECONDS (45-60) H Coagulation Comments Problem\Assessment\Plan Additional Plan Patient presented with complaints of abdominal fullness, dyspnea on exertion and chest pain. The following is his problem list: Heart failure with reduced ejection fraction, acute NT proBNP 8305 LVEF 10-15% by echocardiogram with moderate MR --continue carvedilol 3.125 mg b.i.d. --given his CARIDAD we will hold off on addition of SGLT2, MRA, ACEi/ARNI/ARB --start hydralazine and isosorbide dinitrate --risk of sudden cardiac reviewed. He has been fitted for life-vest. Minimally elevated troponins. OR II Represents OR type 2 secondary to acute kidney injury and heart failure with reduced ejection fraction --may continue heparin for 48 hours --recommend aspirin, statin, beta-dieudonne and management as above. Left bundle branch block Obstructive uropathy Acute kidney injury Jj catheter in place. He will need TURP. discussed sx risk/benefits with regards to HF diagnosis. Per Dr. Weiss given his CARIDAD with urinary obstruction the beneifts of the procedure outweigh the risks. likely moderate risk for sx. --management per her primary team Case discussed with Dr. Weiss who is in agreement with this plan. For any further cardiology needs please contact Dr. Ramos directly Supervising Physician: DUSTIN Bello NP Apr 07, 2025 10:12
[2025-04-07] MEDS: DOBUTamine-DoBUTrex 500mg/D5W 250 ML IV SCH (14:08)
--- NOTE | 2025-04-07 16:26 | PROGRESS NOTE- Residence ---
Progress Note - Resident Providers to CC Resident Creating Document: DONNY MORALES RES ~ Antibiotic Timeout Antibiotic Ordered?: Yes Subjective Patient was seen and examined at the bedside. He is completely asymptomatic today, denies chest pain or shortness for breath. He has been managed by Cardiology and Nephrology team. No overnight events reported. Objective Vital Signs Date Time Temp Pulse Resp B/P (MAP) Pulse Ox O2 Delivery O2 Flow Rate FiO2 04/07/25 14:30 84 16 124/72 (89) 04/07/25 11:00 98.5 97 Room Air 04/06/25 20:00 0.0 Result Diagram: 04/07/25 0642 04/07/25 0642 Awake , alert, and oriented x4 HEENT: Atraumatic, normocephalic, EOMI, anicteric sclera ; pink conjunctiva Neck: Trachea midline. Supple, full range of motion, no JVD Cardiac: Regular rhythm, regular rate with no murmurs all over the precordium. Respiratory: Equal breath sounds bilaterally, no tachypnea, no wheezing ,rub or rales, Chest wall is symmetric and without deformity. Gastrointestinal: Abdomen symmetric, non-distended, soft, non-tender, normal bowel sounds x4 quadrant, normoactive, no hepatosplenomegaly Musculoskeletal: No pedal edema Neurological: Mental status exam: alert and consciousness, orientation, memory, speech - Cranial nerve test: Cranial nerves 2-12 intact - Motor system: Normal Nutrition, normal tone, Power 5/5, no involuntary movements - Sensory system: Intact - Reflex testing: Biceps, triceps and knee reflexes 2+ - Cerebellar: Normal Skin: Warm and dry Coagulation Studies Laboratory Tests Test 04/05/25 14:57 04/05/25 17:01 04/06/25 15:30 D-Dimer 1.91 MG/L FEU (0-0.50) H D-Dimer Comment Prothrombin Time 10.3 SECONDS (9.0-12.0) INR International Normalized Ratio 1.0 INR APTT (Heparin Protocol) 82 SECONDS (45-60) H Coagulation Comments Plan Plan Assessment A 59-year-old male patient with no significant past medical history was admitted for acute kidney injury, congestive heart failure, and elevated troponin levels. 1. Acute Kidney Injury Most likely post-renal due to chronic bladder obstruction. The patient reported decreased urine output over the past few months, associated with increased urinary frequency and a sensation of bladder fullness. There were no signs of acute retention. - BUN: 94 mg/dL - Creatinine: 5.51 mg/dL - BUN/Creatinine Ratio: 17.1 - FENa: 2.3% - PSA: Pending - Renal Ultrasound: Moderate to severe bilateral hydronephrosis; severely distended and trabeculated urinary bladder. - CT Abdomen/Pelvis: Severe bilateral hydroureteronephrosis down to the level of the urinary bladder. No focal obstructing lesion identified. Irregular contour and wall thickening of the urinary bladder suggest chronic outlet obstruction. Prostatomegaly noted. Plan 04/06/25 - Jj catheter was placed by Urology, who recommended outpatient follow-up. - Creatinine levels are expected to decrease. - Increased Flomax to 0.4 mg twice daily. - Administer Lactated Ringer's solution at 150 mL/hour per nephrology recommendations. - Monitor kidney function closely. 04/07/25 - Cr decreased to 4.24 - PSA 3.49 - lactated ringer discontinued to avoid fluid overload - After discussion with Nephrology team, patient was started on dobutamine drip 2.5mcg/kg/min to improve diuresis 2. Type 2 Myocardial Infarction 3. Chronic Systolic Heart Failure with Severely Decreased EF (10-15%) NYHA Class II, Class C. The patient complains of shortness of breath with moderate to severe exertion and denies orthopnea, chest pain, or epigastric pain. No peripheral edema or bibasilar crackles were present. Elevated troponin levels are attributed to a combination of acute kidney injury and congestive heart failure with severely decreased ejection fraction (EF). - EKG shows left bundle branch block . - ProBNP: 8305 - Troponin Levels: 204, 193, 196, 195 - Chest X-ray: Cardiomegaly and pulmonary congestion. - Echocardiogram: Dilated LV size and wall thickness. Overall systolic function is severely reduced. There is severe LV systolic dysfunction present. Overall estimated LVEF is about 10-15%. Plan: 04/06/25 - Dr. [place] Weiss was consulted and recommended stopping the heparin drip - The patient is on IV fluids due to acute kidney injury. - Monitor closely for signs of fluid overload. - Started on carvedilol 3.125 mg twice daily. - Started on aspirin 81 mg and atorvastatin 80 mg daily. - Ordered LifeVest. - Plan to initiate Jardiance, spironolactone, and Entresto if kidney function allows. 04/07/25 - Hold carvedilol, since patient is on dobutamine drip - Started on Jardiance after discussion with Nephrology 4. Urinary Tract Infection, Complicated by CARIDAD Urinalysis is positive for leukocyte esterase and white blood cells. The patient denies dysuria. - Urine culture: Pending. - Started on ceftriaxone 1 g IV daily due to severe decreased kidney function, bilateral hydronephrosis and bladder outlet obstruction 5. Moderate Hyperkalemia Most likely related to acute kidney injury. The patients potassium level was 5.5, now reduced to 4.1. - Monitor potassium levels daily. 6. Normocytic Normochromic Anemia Possible mixed anemia of chronic disease and early megaloblastic anemia. - Hb 9.7, MCV 92.8, MCHC 33.9 - B12 903, haptoglobin 245, LDH 212 - Ferritin 1766, Iron 58, TIBC 225 7. Hyperlipidemia The patient has no past medical history of hyperlipidemia. - LDL: 122 - Started on atorvastatin 80 mg orally daily. Code Status: Full DVT prophylaxis: Heparin Analgesia/Sedation: Morphine Line/tube: Peripheral Nutrition: Renal diet PT: Pending Prognosis: Guarded Disposition: Continue medical treatment. Monitor kidney function closely. Followed by Nephrology and Cardiology. Resident MD attestation The above note has been reviewed and supervised by a senior resident PGY2/PGY3 Patient was seen, examined and discussed with the attending physician Date of Service: Apr 07, 2025 Billing Provider: LUKE RANDLE MD, LUCAS, RES Apr 07, 2025 16:26
[2025-04-08] VITALS (13 sets, daily range): BP systolic 103–135; BP diastolic 73–96; PULSE 92–109; RESP 11–20; TEMP 97.3–98; O2SAT 96–98
[2025-04-08 05:42] LABS: MEAN PLATELET VOLUME 7.8 FL (7.4-10.4); RED CELL DISTRIBUTION WIDTH 11.8 % (11.5-14.5)
[2025-04-08 05:57] LABS: CREATININE 3.96 MG/DL (0.60-1.10); TOTAL CARBON DIOXIDE 24.3 MMOL/L (24-32); eCRCL 21 ML/MIN; eGFR 16 ML/MIN
--- NOTE | 2025-04-08 09:06 | PROGRESS NOTE ---
Progress Note Dictate Providers to CC ~ Central Line/PICC still needed: No Munoz Indications Met/Not Met: F/C Indications Met Antibiotic Ordered?: N/A Subjective Subjective The patient remains cheerful. excellent urine output. creatinine continues to get better but slowly. on dobutamine. Objective Vitals Vital Signs Date Time Temp Pulse Resp B/P (MAP) Pulse Ox O2 Delivery O2 Flow Rate FiO2 04/08/25 09:07 102 04/08/25 08:00 16 98 Room Air 04/08/25 05:00 129/87 (101) 04/08/25 02:00 98.0 04/06/25 20:00 0.0 Lab Results: 04/08/259 04/08/25448 Objective Vital Signs: As above General: Normal body habitus, no acute distress. Skin: No rashes, lumps, ulcers, blisters, purpura or petechiae HEENT: Anicteric sclera, ANMOL Neck: Supple and nontender without enlargement of the thyroid, or lymphadenopathy. Chest: Normal size and shape, no tenderness, CTA bilaterally Heart: Regular. No jugular venous distention, S1 and S2 heard , no gallop Abdomen: Soft and non tender no organomegaly,BS+ Extremities: No pedal edema Neuro: Nonfocal. Coagulation Studies Laboratory Tests Test 04/05/25 14:57 04/05/25 17:01 04/06/25 15:30 D-Dimer 1.91 MG/L FEU (0-0.50) H D-Dimer Comment Prothrombin Time 10.3 SECONDS (9.0-12.0) INR International Normalized Ratio 1.0 INR APTT (Heparin Protocol) 82 SECONDS (45-60) H Coagulation Comments Advance Care Planning Advanced Care plannin - 30 Minutes Problem\Assessment\Plan Problems/Diagnosis: (1) CARIDAD (acute kidney injury) Assessment & Plan: secondary to obstructive uropatahy. not sure how long this has been brewing but per history symptoms of abdominal distension dates back to a month. i did discuss with the patient about the possibility of plateauing renal function during recovery after a munoz is placed. Appreciate the help from in getting the munoz cath. Creatinine is better at 3.9. We gave him good dose of IV fluids to support the post obstructive diuresis, and flush to avoid ATN. HOwever, today I understand that his Echocardiogram shows EF of 10-15%. If I don't see any further improvement in renal function, he may benefit with Dobutamine at that point. Cardiology is now involved. I have STOPPED the iv fluids to avoid a fluid overload situation. HE IS NOT READY TO BE DISCHARGED YET. (2) Anemia Assessment & Plan: hb is 9.1. retacrit 10,000 units Sq x once at this time. (3) Obstructive uropathy Assessment & Plan: as above. munoz is a must. if there is difficulty, Urologist 's help is greatly appreciated. ENRIQUE PEARSON MD Apr 08, 2025 09:06
[2025-04-08] MEDS: EMPAGLIFLOZIN 10 MG TABLET PO SCH (09:07)
--- NOTE | 2025-04-08 15:05 | PROGRESS NOTE- Residence ---
Progress Note - Resident Providers to CC Resident Creating Document: DONNY MORALES RES ~ Antibiotic Timeout Antibiotic Ordered?: Yes Subjective Patient was seen and examined at the bedside. He is tolerating all new medications and denies any new symptoms. Patient resting comfortably but ambulates without chest pain or shortness for breath. No other symptoms reported. Objective Vital Signs Date Time Temp Pulse Resp B/P (MAP) Pulse Ox O2 Delivery O2 Flow Rate FiO2 04/08/25 09:07 102 04/08/25 08:00 16 98 Room Air 04/08/25 05:00 129/87 (101) 04/08/25 02:00 98.0 04/06/25 20:00 0.0 Result Diagram: 04/08/2544804/08/25448 Awake , alert, and oriented x4 HEENT: Atraumatic, normocephalic, EOMI, anicteric sclera ; pink conjunctiva Neck: Trachea midline. Supple, full range of motion, no JVD Cardiac: Regular rhythm, regular rate with no murmurs all over the precordium. Respiratory: Equal breath sounds bilaterally, no tachypnea, no wheezing ,rub or rales, Chest wall is symmetric and without deformity. Gastrointestinal: Abdomen symmetric, non-distended, soft, non-tender, normal bowel sounds x4 quadrant, normoactive, no hepatosplenomegaly Musculoskeletal: No pedal edema Neurological: Mental status exam: alert and consciousness, orientation, memory, speech - Cranial nerve test: Cranial nerves 2-12 intact - Motor system: Normal Nutrition, normal tone, Power 5/5, no involuntary movements - Sensory system: Intact - Reflex testing: Biceps, triceps and knee reflexes 2+ - Cerebellar: Normal Skin: Warm and dry Coagulation Studies Laboratory Tests Test 04/05/25 14:57 04/05/25 17:01 04/06/25 15:30 D-Dimer 1.91 MG/L FEU (0-0.50) H D-Dimer Comment Prothrombin Time 10.3 SECONDS (9.0-12.0) INR International Normalized Ratio 1.0 INR APTT (Heparin Protocol) 82 SECONDS (45-60) H Coagulation Comments Plan Plan Assessment A 59-year-old male patient with no significant past medical history was admitted for acute kidney injury, congestive heart failure, and elevated troponin levels. 1. Acute Kidney Injury Most likely post-renal due to chronic bladder obstruction. The patient reported decreased urine output over the past few months, associated with increased urinary frequency and a sensation of bladder fullness. There were no signs of acute retention. - BUN: 94 mg/dL - Creatinine: 5.51 mg/dL - BUN/Creatinine Ratio: 17.1 - FENa: 2.3% - PSA: Pending - Renal Ultrasound: Moderate to severe bilateral hydronephrosis; severely distended and trabeculated urinary bladder. - CT Abdomen/Pelvis: Severe bilateral hydroureteronephrosis down to the level of the urinary bladder. No focal obstructing lesion identified. Irregular contour and wall thickening of the urinary bladder suggest chronic outlet obstruction. Prostatomegaly noted. Plan 04/06/25 - Jj catheter was placed by Urology, who recommended outpatient follow-up. - Creatinine levels are expected to decrease. - Increased Flomax to 0.4 mg twice daily. - Administer Lactated Ringer's solution at 150 mL/hour per nephrology recommendations. - Monitor kidney function closely. 04/07/25 - Cr decreased to 4.24 - PSA 3.49 - lactated ringer discontinued to avoid fluid overload - After discussion with Nephrology team, patient was started on dobutamine drip 2.5mcg/kg/min to improve diuresis 04/08/25 - Cr 3.96 - Continue dobutamine drip for more 24 hours - Possible discharge soon with outpatient follow-up 2. T/ype 2 Myocardial Infarction due to demand ischemia in the setting of kidney injury and severely decreased EF 3. Chronic Systolic Heart Failure with Severely Decreased EF (10-15%) NYHA Class II, Class C. The patient complains of shortness of breath with moderate to severe exertion and denies orthopnea, chest pain, or epigastric pain. No peripheral edema or bibasilar crackles were present. Elevated troponin levels are attributed to a combination of acute kidney injury and congestive heart failure with severely decreased ejection fraction (EF). - EKG shows left bundle branch block . - ProBNP: 8305 - Troponin Levels: 204, 193, 196, 195 - Chest X-ray: Cardiomegaly and pulmonary congestion. - Echocardiogram: Dilated LV size and wall thickness. Overall systolic function is severely reduced. There is severe LV systolic dysfunction present. Overall estimated LVEF is about 10-15%. Plan: 04/06/25 - Dr. [place] Weiss was consulted and recommended stopping the heparin drip - The patient is on IV fluids due to acute kidney injury. - Monitor closely for signs of fluid overload. - Started on carvedilol 3.125 mg twice daily. - Started on aspirin 81 mg and atorvastatin 80 mg daily. - Ordered LifeVest. - Plan to initiate Jardiance, spironolactone, and Entresto if kidney function allows. 04/07/25 - Hold carvedilol, since patient is on dobutamine drip - Started on Jardiance after discussion with Nephrology 04/08/25 Continue Jardiance, hold carvedilol Continue hydralazine/isosorbide dinitrate 4. Urinary Tract Infection, Complicated by CARIDAD Urinalysis is positive for leukocyte esterase and white blood cells. The patient denies dysuria. - Urine culture: Mixed josiane - Continue ceftriaxone 1 g IV day 3 due to severe decreased kidney function, bilateral hydronephrosis and bladder outlet obstruction 5. Moderate Hyperkalemia Most likely related to acute kidney injury. The patients potassium level was 5.5, now back to normal - Monitor potassium levels daily. 6. Normocytic Normochromic Anemia Possible mixed anemia of chronic disease and early megaloblastic anemia. - Hb 9.7, MCV 92.8, MCHC 33.9 - B12 903, haptoglobin 245, LDH 212 - Ferritin 1766, Iron 58, TIBC 225 7. Hyperlipidemia The patient has no past medical history of hyperlipidemia. - LDL: 122 - Started on atorvastatin 80 mg orally daily. Code Status: Full DVT prophylaxis: Heparin Analgesia/Sedation: Morphine Line/tube: Peripheral Nutrition: Renal diet PT: Pending Prognosis: Guarded Disposition: Continue medical treatment. Monitor kidney function closely. Followed by Nephrology and Cardiology. Possible discharge soon with outpatient follow-up. Resident MD attestation The above note has been reviewed and supervised by a senior resident PGY2/PGY3 Patient was seen, examined and discussed with the attending physician Date of Service: Apr 08, 2025 Billing Provider: LUKE RANDLE MD, LUCAS, RES Apr 08, 2025 15:05
[2025-04-09] VITALS (7 sets, daily range): BP systolic 120–136; BP diastolic 77–87; PULSE 94–100; RESP 13–20; TEMP 97.4–98.3; O2SAT 96–97
[2025-04-09 05:53] LABS: MEAN PLATELET VOLUME 7.7 FL (7.4-10.4); RED CELL DISTRIBUTION WIDTH 12.1 % (11.5-14.5)
[2025-04-09 06:01] LABS: CREATININE 3.54 MG/DL (0.60-1.10); TOTAL CARBON DIOXIDE 24.3 MMOL/L (24-32); eCRCL 23 ML/MIN; eGFR 18 ML/MIN
--- NOTE | 2025-04-09 12:45 | PROGRESS NOTE ---
Progress Note Dictate Providers to CC ~ Central Line/PICC still needed: No Munoz Indications Met/Not Met: F/C Indications Met Antibiotic Ordered?: N/A Subjective Subjective outpatient follow up with me has been arranged. he meanwhile needs weekly renal panel for 2 months. He will go home with munoz cath for now and needs a mandatory follow up with withina month. He needs a follow up with as well regarding his cardiomyopathy prior to his ability to have a TURP done with a [facility]. fluid restriction to 1.5 liters per day. 2 g sodium per day. Objective Vitals Vital Signs Date Time Temp Pulse Resp B/P (MAP) Pulse Ox O2 Delivery O2 Flow Rate FiO2 04/09/25 11:00 97.7 98 20 130/86 (101) 04/09/25 02:00 97 Room Air 04/06/25 20:00 0.0 Lab Results: 04/09/25 0520 04/09/25 0520 Objective Vital Signs: As above General: Normal body habitus, no acute distress. Skin: No rashes, lumps, ulcers, blisters, purpura or petechiae HEENT: Anicteric sclera, ANMOL Neck: Supple and nontender without enlargement of the thyroid, or lymphadenopathy. Chest: Normal size and shape, no tenderness, CTA bilaterally Heart: Regular. No jugular venous distention, S1 and S2 heard , no gallop Abdomen: Soft and non tender no organomegaly,BS+ Extremities: No pedal edema Neuro: Nonfocal. Coagulation Studies Laboratory Tests Test 04/05/25 14:57 04/05/25 17:01 04/06/25 15:30 D-Dimer 1.91 MG/L FEU (0-0.50) H D-Dimer Comment Prothrombin Time 10.3 SECONDS (9.0-12.0) INR International Normalized Ratio 1.0 INR APTT (Heparin Protocol) 82 SECONDS (45-60) H Coagulation Comments Advance Care Planning Advanced Care plannin - 30 Minutes Problem\Assessment\Plan Problems/Diagnosis: (1) CARIDAD (acute kidney injury) Assessment & Plan: secondary to obstructive uropatahy. getting better slowly. ther eis a posssibility of coexistent cardiomyopathy related cardiorenal syndrome. needs weekly renal panel. (2) Anemia Assessment & Plan: hb is 9.1. retacrit 10,000 units Sq x once at this time. (3) Obstructive uropathy Assessment & Plan: as above. munoz is a must. if there is difficulty, Urologist 's help is greatly appreciated. ENRIQUE PEARSON MD Apr 09, 2025 12:45
[2025-04-09] MEDS ORDERED: ISOS10TA2 PO (13:05)
[2025-04-09] MEDS ORDERED: HYDR25TA90 PO (13:05)
[2025-04-09] MEDS ORDERED: EMPA10TA PO (13:05)
[2025-04-09] MEDS ORDERED: ASPI-1265 PO (13:05)
[2025-04-09] MEDS ORDERED: ATOR-429 PO (13:05)
[2025-04-09] MEDS ORDERED: tamsulosin capsule PO (13:05)
[2025-04-09] MEDS ORDERED: CARV3.1289 PO (13:06)
[2025-04-09] MEDS ORDERED: TAMS-55 PO (17:15)
--- NOTE | 2025-04-09 19:40 | DISCHARGE SUMMARY-Residence ---
Discharge Summary Providers to CC Resident Creating Document: ROEL MORALES RES ~ Discharge Summary Admission Diagnosis: CARIDAD, type 2 MN Hospital Course DATE OF ADMISSION: 04/05/25 DATE OF DISCHARGE: 04/09/25 Renal ultrasound Moderate to severe bilateral hydronephrosis. Severely distended and trabeculated urinary bladder. Chest x-ray Cardiomegaly and pulmonary vascular congestion Abdomen CT 1. Severe bilateral hydroureteronephrosis down to the level of the urinary bladder. No focal obstructing lesion identified. 2. Irregular contour and wall thickening of the urinary bladder is suggestive of chronic outlet obstruction. 3. Prostatomegaly. 4. Mild interstitial pulmonary edema. 5. Trace right pleural effusion Echocardiogram There is severe LV systolic dysfunction present. Overall estimated LVEF is about 10-15%. Dilatedl LV size and wall thickness. Overall systolic function is severely reduced. RV is normal size and function. Trileaflet AV appears normal without stenosis. Trace insufficiency. Mild MV annular calcification without stenosis. Moderate regurgitation. TV appears structurally normal with trace regurgitation. Normal pericardium. No effusion. The aortic root is normal in size. Discharge Diagnosis\\Comment: 1. Acute Kidney Injury Most likely post-renal due to chronic bladder obstruction, causing renal tubular stasis 2. T/ype 2 Myocardial Infarction due to demand ischemia in the setting of kidney injury and severely decreased EF 3. Newly diagnosed Systolic Heart Failure with Severely Decreased EF (10-15%) NYHA Class II, Class C. 4. Urinary Tract Infection, Complicated by CARIDAD due to renal tubular stasis 5. Moderate Hyperkalemia 6. Normocytic Normochromic Anemia 7. Hyperlipidemia Operations\\Procedures: None Consultants: Cardiology, Urology, nephrology Complications: None Condition on DC: Stable New Medications: Carvedilol (Carvedilol) 3.125 Mg Tablet 1 TAB PO Q12H for 30 Days, #60 TAB 0 Refills Tamsulosin Hcl* (Flomax*) 0.4 Mg Cap.sr.24h 1 CAP PO DAILY for 30 Days, #30 CAP Atorvastatin Calcium* (Lipitor*) 80 Mg Tablet 1 TAB PO DAILY for 30 Days, #30 TAB Empagliflozin (Jardiance) 10 Mg Tablet 10 MG PO DAILY for 30 Days, #30 TAB Hydralazine Hcl* (Apresoline*) 25 Mg Tablet 25 MG PO BID for 30 Days, #60 TAB Isosorbide Dinitrate (Isosorbide Dinitrate) 10 Mg Tablet 10 MG PO TID for 30 Days, #90 TAB [tamsulosin capsule] () 0.4 MG CAP 0.4 MG PO HS for 30 Days, #30 Continued Medications: Aspirin (Aspirin) 81 Mg Tab.chew 1 TAB PO DAILY for 30 Days, #30 TAB (This prescription has been renewed) Discharge Summary: History of present illness The patient was admitted with the following HPI: "A 59 year-old male with no known past medical history presents to the Emergency Department with complaints of recurrent abdominal fullness and intermittent retrosternal chest pain over the past few months. He has not previously sought medical care and does not have a primary care physician. Over the past year, he has experienced progressive generalized weakness, shortness of breath with exertion (notably after walking approximately 200 meters), intermittent abdominal fullness associated with constipation, and decreased urine output. On the day of presentation, he reports worsening abdominal fullness and constipation, along with intermittent retrosternal chest pain accompanied by shortness of breath. He denies palpitations, dizziness, chills, nausea, and vomiting. Additionally, he notes recent weight loss following a high-protein diet." Hospital course A 59-year-old man with no known past medical history presented on April 05, 2025, complaining of one year of postprandial abdominal fullness that had worsened over the prior one to two months. He described intermittent chest pain and shortness of breath only with moderate to severe exertion, such as walking more than 200 meters, but denied symptoms at rest. He also reported chronic lower urinary tract symptoms: weak stream, sensation of incomplete bladder emptying, frequent small-volume voids, and cloudy urine. There was no fever, flank pain, hematuria, nausea, or vomiting. On arrival, he was hypertensive at 145/106 mmHg with a heart rate of 103 bpm, afebrile, and saturating 99% on room air. Physical exam revealed a soft, mildly distended abdomen with suprapubic tenderness but no guarding or rebound. Cardiac and lung exams were unremarkable, with no murmurs, wheezes, or signs of volume overload. Initial laboratory evaluation revealed: creatinine 5.43 mg/dL, BUN 96 mg/dL (BUN/creatinine ratio 17.7), fractional excretion of sodium 0.4%. Troponin was elevated at 204 ng/L and remained stable across serial measurements (193 - 196 - 195). BNP was markedly elevated at 8305 pg/mL. Urinalysis showed positive leukocyte esterase and cloudy urine. Post-void residual volume by bladder scan was 500 mL. Chest X-ray demonstrated cardiomegaly and pulmonary vascular congestion. CT abdomen/pelvis revealed severe bilateral hydroureteronephrosis, marked bladder wall thickening, and no stones or masses. Urology was consulted urgently. A 16 [place] Jj catheter was placed, draining 700 mL of cloudy yellow urine immediately. Lactated Ringers was initiated at 150 mL/hour, and ceftriaxone 1 gram IV daily was started for presumed urinary tract infection. Cardiology evaluated the patient; heparin drip was discontinued given stable troponins and lack of ischemic ECG changes. Aspirin 81 mg, atorvastatin 80 mg, and carvedilol 3.25 mg twice daily were begun. Echocardiogram and renal ultrasound were ordered. On hospital day 1, creatinine improved to 5.19 mg/dL. Echocardiogram showed severe global hypokinesis with left ventricular ejection fraction of 1015%, mild mitral regurgitation, and no significant valvular disease. The patient remained asymptomatic at rest, with no orthopnea, edema, or respiratory distress. He was treated for CARIDAD due to postrenal etiology with chronic outlet obstruction, type 2 MN and UTI. He was also diagnosed with newly diagnosed heart failure with severely reduced ejection fraction (HFrEF, EF 1015%), compensated, likely multifactorial (ischemic vs. Kidney failure-induced). Management continued with IV fluids, ceftriaxone, and Jj catheter. We also ordered a LifeVest for arrhythmia prophylaxis. Plans were made to initiate guideline-directed medical therapy (Jardiance, spironolactone, Entresto) once renal function further improved. On hospital day 2, creatinine continued to downtrend to 4.24 mg/dL. IV fluids were discontinued to avoid fluid overload in the setting of severe HFrEF. D obutamine was initiated at 2.5 mcg/kg/min to support renal perfusion and promote diuresis. Carvedilol was held while on inotropic support. Urology recommended maintaining the Jj catheter for at least two weeks, with outpatient transurethral resection of the prostate planned for definitive BPH management. Coronary angiography splint outpatient to evaluate the etiology of heart failure and possible ischemic contribution. Throughout the hospitalization, the patient remained hemodynamically stable, with improving renal function, stable cardiac biomarkers, and no signs of decompensated heart failure. He is stable to be discharged with Cardiology, Urology and Nephrology follow-up Discharge physical exam Awake , alert, and oriented x4 HEENT: Atraumatic, normocephalic, EOMI, anicteric sclera ; pink conjunctiva Neck: Trachea midline. Supple, full range of motion, no JVD Cardiac: Regular rhythm, regular rate with no murmurs all over the precordium. Respiratory: Equal breath sounds bilaterally, no tachypnea, no wheezing ,rub or rales, Chest wall is symmetric and without deformity. Gastrointestinal: Abdomen symmetric, non-distended, soft, non-tender, normal bowel sounds x4 quadrant, normoactive, no hepatosplenomegaly Musculoskeletal: No pedal edema Neurological: Mental status exam: alert and consciousness, orientation, memory, speech - Cranial nerve test: Cranial nerves 2-12 intact - Motor system: Normal Nutrition, normal tone, Power 5/5, no involuntary movements - Sensory system: Intact - Reflex testing: Biceps, triceps and knee reflexes 2+ - Cerebellar: Normal Skin: Warm and dry Discharge medications New Medications: Carvedilol 3.125 Mg Tablet Tamsulosin Hcl* (Flomax*) 0.4 Mg Cap.sr.24h Atorvastatin Calcium* (Lipitor*) 80 Mg Tablet Empagliflozin (Jardiance) 10 Mg Tablet Hydralazine Hcl* (Apresoline*) 25 Mg Tablet Isosorbide Dinitrate 10 Mg Tablet [tamsulosin capsule] 0.4 MG CAP Continued Medications: Aspirin 81 Mg Tab.chew Discharge instructions - Follow-up with your primary care physician in one week and [facility]. A date will be given trust manager assistant. - Heart failure please follow up with Dr. Weiss. You may call his office at [phone] - Follow-up with Dr. Ocasio outpatient - Follow-up with urologist Dr Ham (Call [phone] for appointment) - Continue to use the Jj catheter until urology evaluation - Repeat the renal panel weekly for the next two months - Water restriction < 1.5L daily and sodium restriction less than 2g daily - Weight yourself regularly - Pay attention to multiple new medications required, be aware of side effects - You need to take tamsulosin, aspirin, atorvastatin, carvedilol, Jardiance, hydralazine and isosorbide. Specific instructions are found in the discharge medications - Come back in case of chest pain, severe shortness of breath, increasing leg swelling or any concerning symptoms *Problems/Diagnosis: (1) CARIDAD (acute kidney injury) Status: Acute Permanent Comment: Due to Renal tubular status Last Edited By: Roel Morales - Resident on Apr 09, 2025 19:49 (2) Anemia Status: Chronic (3) Obstructive uropathy Status: Chronic (4) Type 2 myocardial infarction Status: Acute Total Time Spent on D/C: > 30 Minutes Date of Service: Apr 09, 2025 Billing Provider: LUKE RANDLE MD Problem Qualifiers (1) Anemia: Anemia type: due to chronic kidney disease Chronic kidney disease stage: stage 5 (GFR < 15), not on chronic dialysis Qualified Codes: N18.5 - Chronic kidney disease, stage 5; D63.1 - Anemia in chronic kidney disease ROEL MORALES, RES Apr 09, 2025 19:40
== END 2025-04-09 17:07 | disposition home or self-care (01) | DRG 682 ==
LOC: ER 09:30 → ED HOLD 12:12 → PCU 3S 13:43
PROVIDERS: ADMIT Family Medicine; ATTEND Family Medicine
DX: N17.9 Acute kidney failure, unspecified (principal); I21.A1 Myocardial infarction type 2; N39.0 Urinary tract infection, site not specified; I42.9 Cardiomyopathy, unspecified; I50.22 Chronic systolic (congestive) heart failure; K59.00 Constipation, unspecified; N13.30 Unspecified hydronephrosis; E78.5 Hyperlipidemia, unspecified; E87.5 Hyperkalemia; N40.0 Benign prostatic hyperplasia without lower urinary tract symptoms; D64.9 Anemia, unspecified; I44.7 Left bundle-branch block, unspecified; N32.0 Bladder-neck obstruction; Z79.899 Other long term (current) drug therapy
CPT/HCPCS: 36415; 71045; 74176; 76770; 80048; 80053; 80061; 81001; 82570; 82607; 82728; 83010; 83036; 83540; 83550; 83615; 83735; 83880; 83935; 84100; 84133; 84145; 84153; 84156; 84300; 84443; 84484; 85025; 85379; 85610; 85730; 87081; 87088; 87207; 93005; 93306; 96365; 99285; A4314; A4340; A4358; A5200; G0378; J0696; J1250; J1644; J7030; J7040; J7120